=== PATIENT | female | born 1950 | race Caucasian/White ===

== ENCOUNTER → 2017-06-23 | Outpatient (CLI) | payer OTHER | LOC: FIMAGING 11:12 | PROVIDERS: ATTEND Family Medicine | DX: Z12.31 Encounter for screening mammogram for malignant neoplasm of breast (principal) | CPT/HCPCS: G0202 ==

== ENCOUNTER 2017-09-16 11:38 | Emergency (ER) | payer OTHER ==
[2017-09-16 11:44] VITALS: BP 129/81; PULSE 60; RESP 16; TEMP 97.5; O2SAT 98
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
[2017-09-16] MEDS ORDERED: LIDOCAINE 5% 1 EA PATCH TD ONE (12:24)
[2017-09-16] MEDS ORDERED: PATCH REMOVAL 1 EA PATCH TD SCH (21:00)
== END 2017-09-16 12:25 | disposition home or self-care (01) ==
DX: M54.41 Lumbago with sciatica, right side (principal); J45.909 Unspecified asthma, uncomplicated

== ENCOUNTER 2017-09-20 09:24 | Emergency (ER) | payer OTHER ==
[2017-09-20 09:30] VITALS: RESP 16; TEMP 98.6
--- NOTE | 2017-09-20 09:34 | EDPHY ---
H & P Stated Complaint: "sciatica worse" here 5 days ago same--Lbk pain down L leg Time Seen by Provider: 09/20/17 09:34 - Medical/Surgical History Hx Asthma: Yes Hx Chronic Respiratory Disease: No Hx Diabetes: No Hx Cardiac Disease: No Hx Renal Disease: No Hx Cirrhosis: No Hx Alcoholism: No Hx HIV/AIDS: No Hx Splenectomy or Spleen Trauma: No Other PMH: asthma - Social History Smoking Status: Never smoked Constitutional: Initial Vital Signs Temperature (C) 37.0 C 09/20/17 09:27 Heart Rate 69 09/20/17 09:27 Respiratory Rate 16 09/20/17 09:27 Blood Pressure 111/65 09/20/17 09:27 O2 Sat (%) 98 09/20/17 09:27 O2 Delivery Mode Room Air Allergies/Adverse Reactions: No Known Allergies Allergy (Verified 09/20/17 09:26) Home Medications: Medication Instructions Recorded Ibuprofen 09/16/17 methylPREDNISolone [Medrol Dose 1 each PO AD #1 ea 09/16/17 Mu] Medical Decision Making - Diagnostics Imaging: Discussed imaging studies w/ yarrow gatherer Radiologist, I viewed and interpreted images myself ED Course/Re-evaluation: CHIEF COMPLAINT: Back and leg pain HISTORY OF PRESENT ILLNESS: The patient is a 67 y/o female complaining of progressively worsening lower back and left leg pain for the last 1.5 months. She remembers feeling a pop and mild pain when bending over around August first. Her pain starts in her lumbar back and wraps around her left hip and down the front of her leg to the level of her ankle with some associated tingling. She has been going to PT appointments with no improvement in symptoms. Her pain has continued to worsen and she came to the ED last , 4 days ago, for evaluation. She was diagnosed with sciatica and was discharged on Medrol with Tylenol and lidocaine for pain, but this has not improved nor controlled her symptoms. Last night her pain became very severe and she has been unable to sleep. Her pain is aggravated by raising her left leg. She has been unable to get an appointment with a specialist for follow up any time soon and has not had any imaging yet. No incontinence, saddle anesthesias, weakness, fever. She has no prior history of sciatica prior to this episode. REVIEW OF SYSTEMS: A 10 point review of systems was performed and is negative with the exception of the elements mentioned in the history of present illness. PHYSICAL EXAM: HR, BP, O2 Sat, RR. Temp noted General Appearance: Alert, well hydrated, appropriate, and non-toxic appearing. Head: Atraumatic without scalp tenderness or obvious injury Eyes: Pupils equal, round, reactive to light and accommodation, EOMI, no trauma , no injection. Nose: Atraumatic, no rhinorrhea, clear. Throat: Mucus membranes moist. Neck: Supple, nontender, no lymphadenopathy. Respiratory: No retractions, no distress, no wheezes, and no accessory muscle use. Lungs are clear to auscultation bilaterally. Cardiovascular: Regular rate and rhythm, no murmurs, rubs, or gallops. Bilateral dorsalis pedis pulses intact. Good capillary refill all extremities. Gastrointestinal: Abdomen is soft, nontender, non-distended, no masses, no rebound, no guarding, no peritoneal signs. Musculoskeletal: Normal active ROM of all extremities, atraumatic. Pain elicited with left leg raise. Neurological: Alert, appropriate, and interactive. The patient has non-focal cranial nerves, motor, sensory, and cerebellar exam. Normal 5/5 strength lower extremities. Skin: No rashes, good turgor, no nodules on palpation. Past medical history: Sciatica Past surgical history: Noncontributory Family history: Noncontributory Social history: at bedside. Lives in [place]. Retired. Reviewed prior medical records including ED visit 09/16/17 for the same symptoms. DIAGNOSTICS/PROCEDURES/CRITICAL CARE TIME: Lumbar MRI: L4-L5 disc bulge DIFFERENTIAL DIAGNOSIS: The differential diagnosis for the patient's back pain included but was not limited to musculoskeletal pain, epidural abscess, herniated disk, spinal fracture, and intra-abdominal causes including urinary system. MEDICAL DECISION MAKING: This is a 67 y/o female who presents with progressive lumbar radiculopathy not controlled or improved with non-narcotic pain measures and Medrol dose pack. Symptoms extend from lumbar back to left hip and down to the level of her ankle with some paresthesias. Normal strength on exam. No visible trauma or rash. Presentation consistent with lumbar spine herniation or other spinal etiology. Plan for lumbar spine MRI for further evaluation of symptoms. Patient declined pain medication at this time. Patient has an L4-L5 disc bulge on MRI. Reassessed patient and discussed findings. Exam unchanged. Do not suspect acute cauda equina. She will be discharged with Prednisone, OxyIR, 800mg Motrin, lidocaine patches, and neurosurgery follow up. Return precautions discussed. She is comfortable with plan for discharge. Departure - Departure Disposition: Home, Routine, Self-Care Clinical Impression: Back pain of lumbar region with sciatica, Lumbar disc herniation, L4-L5 disc bulge Condition: Good Instructions: Lumbar Radiculopathy (ED), Lumbar Disc Herniation (ED), Prednisone (By mouth), Oxycodone, Rapid Release (By mouth) Additional Instructions: 1. Take prednisone as prescribed. Be sure to complete the entire prescription. 2. Use OxyIR as prescribed when needed for severe pain. This can make you drowsy. Do not use it while driving. 3. Continue using lidocaine patches as directed. 4. Take 800mg ibuprofen every 8 hours for pain over the next several days. 5. Follow up with Dr. Gomes, back specialist, within the next week. 6. Return to the ED for severe pain, weakness or numbness in an extremity or around your genitals, incontinence, fever, or other worsening of condition. Referrals: Awilda Cardona MD [Primary Care Provider] - As per Instructions Kirk Gomes MD [Medical Doctor] - As per Instructions Report Scribed for: Gurmeet Brito Report Scribed by: Nancy Zimmerman Date of Report: 09/20/17 Time of Report: 09:49
[2017-09-20 11:27] VITALS: BP 110/58; PULSE 59; O2SAT 93
== END 2017-09-20 11:27 | disposition home or self-care (01) ==
DX: M54.41 Lumbago with sciatica, right side (principal); M51.26 Other intervertebral disc displacement, lumbar region; J45.909 Unspecified asthma, uncomplicated

== ENCOUNTER → 2017-10-26 | Outpatient (CLI) | payer OTHER | LOC: FIMAGING 10:27 | PROVIDERS: ATTEND Family Medicine | DX: Z13.820 Encounter for screening for osteoporosis (principal); M81.8 Other osteoporosis without current pathological fracture; E83.50 Unspecified disorder of calcium metabolism; Z78.0 Asymptomatic menopausal state ==

== ENCOUNTER → 2018-06-24 | Outpatient (CLI) | payer OTHER | LOC: FIMAGING 09:22 | PROVIDERS: ATTEND Family Medicine | DX: Z12.31 Encounter for screening mammogram for malignant neoplasm of breast (principal) ==